=== PATIENT | male | born 1975 | race Caucasian/White ===

== ENCOUNTER 2016-12-13 19:00 | Emergency (ER) ==
[2016-12-13 19:13] VITALS: BP 160/100; TEMP 98.8; BMI 35.2
== END 2016-12-13 20:05 | disposition left against medical advice (07) ==
LOC: ED 19:00
DX: R51 Headache (principal); R50.9 Fever, unspecified; S02.5XXA Fracture of tooth (traumatic), initial encounter for closed fracture

== ENCOUNTER 2017-01-24 07:21 | Emergency (ER) ==
[2017-01-24 07:27] VITALS: BP 155/111; TEMP 96; BMI 34.9
--- NOTE | 2017-01-24 07:44 | ED.PDOC ---
General ED Provider: Dr. CYDNEY MURRAY Chief Complaint: Tooth Problem Stated Complaint: dental pain Time Seen by Physician: 07:30 Mode of Arrival: Walk-In Information Source: Patient Exam Limitations: No limitations [facility] Nursing and Triage Documentation Reviewed and Agree: Yes EENT Complaint Exam - Dental/Oral Complaint/Exam Mechanism of Injury: No known trauma Symptoms Are: Still present Timing: Intermittent Initial Severity: Moderate Current Severity: Moderate Character: Reports: Dull, Aching, Throbbing Aggravating: Reports: Heat, Cold, Chewing Alleviating: Reports: None Associated Signs and Symptoms: Denies: Swelling, Discharge, Fever, Foul odor, Foul taste in mouth Related History: Reports: Similar episode Cardiac Risk Factors: Reports: None Dental/Oral Surgical History: Reports: None Tooth Findings: Present: Gross decay, Gross caries. Absent: Abcess Cervical Lymphadenopathy Present: No Facial Swelling Present: No Bleeding Present: No Oropharynx Findings: Absent: Clots, Active bleeding Septal Hematoma: No Foreign Body Present: No Dysphagia Present: No Drooling Present: No Asymmetrical Tonsillar Swelling Present: No Uvula Midline: No Angelica-tonsillar Fluctuence: No Trismus Present: No Palatal Petechiae Present: No Scarlatinaform Rash Present: No Teeth Picture: 1 - decay Differential Diagnoses: Dental Caries Review of Systems - Review Of Systems Constitutional: Reports: No symptoms Eyes: Reports: No symptoms Ears, Nose, Mouth, Throat: Reports: No symptoms Respiratory: Reports: No symptoms Cardiac: Reports: No symptoms GI: Reports: No symptoms : Reports: No symptoms Musculoskeletal: Reports: No symptoms Skin: Reports: No symptoms Neurological: Reports: No symptoms Endocrine: Reports: No symptoms Hematologic/Lymphatic: Reports: No symptoms All Other Systems: Reviewed and Negative Past Medical History - Past Medical History Previously Healthy: Yes Endocrine: Reports: None Cardiovascular: Reports: None Respiratory: Reports: None Hematological: Reports: None Gastrointestinal: Reports: None Genitourinary: Reports: None Neuro/Psych: Reports: None Musculoskeletal: Reports: None Cancer: Reports: None - Surgical History General Surgical History: Reports: None - Family History Family History: Reports: None - Social History Smoking Status: Current every day smoker, Light tobacco smoker Hx Substance Use: Yes ( A YOUTH) Alcohol Screening: None - Immunizations Tetanus Shot up to Date: Yes Physical Exam - Physical Exam Appearance: Well-appearing, No pain distress, Well-nourished Eyes: THANIA, EOMI, Conjunctiva clear ENT: Ears normal, Nose normal, Oropharynx normal Respiratory: Airway patent, Breath sounds clear, Breath sounds equal, Respirations nonlabored Cardiovascular: RRR, Pulses normal, No rub, No murmur GI/: Soft, Nontender, No masses, Bowel sounds normal, No Organomegaly Musculoskeletal: Normal strength, ROM intact, No edema, No calf tenderness Skin: Warm, Dry, Normal color Neurological: Sensation intact, Motor intact, Reflexes intact, Cranial nerves intact, Alert, Oriented Psychiatric: Affect appropriate, Mood appropriate Critical Care Note - Critical Care Note Total Time (mins): 0 Course - Course Vital Signs: Temp Pulse Resp BP Pulse Ox 01/24/17 07:21 96 F L 97 H 20 155/111 H 97 Departure - Departure Time of Disposition: 07:43 Disposition: HOME SELF-CARE Discharge Problem: Toothache Instructions: Dental Caries (ED), Toothache (ED) Condition: Good Pt referred to PMD for follow-up: No Allergies/Adverse Reactions: Allergies ibuprofen Adverse Reaction (Verified 01/24/17 07:27) IS NOT ALLERGIG, BUT DOES NOT TAKE DUE TO DIVERTICULITIS Home Medications: Ambulatory Orders 1 [No Reported Medications] 06/11/14 Disposition Discussed With: Patient
== END 2017-01-24 07:46 | disposition home or self-care (01) ==
LOC: ED 07:21
DX: K08.89 Other specified disorders of teeth and supporting structures (principal); K02.7 Dental root caries; F17.210 Nicotine dependence, cigarettes, uncomplicated
CPT/HCPCS: 99282

== ENCOUNTER 2017-03-20 06:44 | Emergency (ER) ==
[2017-03-20 06:55] VITALS: BP 138/84; TEMP 98.1; BMI 35.7
--- NOTE | 2017-03-20 07:46 | DI ---
EXAM: CHEST FRONTAL AND LATERAL VIEWS HISTORY: Cough. COMPARISON: 11/18/2012 FINDINGS: Heart size and mediastinal contour remain within normal limits. There is subtle patchy density in the lateral right base. Lungs are otherwise clear. Normal vascularity. No pneumothorax or pleural fluid. IMPRESSION: Subtle lateral right base density could represent minimal pneumonia given patient history.
--- NOTE | 2017-03-20 07:46 | ED.PDOC ---
General ED Provider: Dr. AMMY WITT Chief Complaint: Back Pain Stated Complaint: Patient states he has been coughing and having back pain mostly in the between the shoulder blades more on the left. States he has been lifting alot of weights at work. Time Seen by Physician: 07:42 Mode of Arrival: Walk-In Information Source: Patient [facility] and Triage Documentation Reviewed and Agree: Yes Musculoskeletal Complaint Exam - Back Pain Complaint/Exam Mechanism of Injury: Reports: No known trauma Onset/Duration: 1 day Symptoms Are: Still present Timing: Constant Location: Reports: Discrete (Left upper back ) Character: Reports: Aching, Throbbing Aggravating: Reports: Movements, Lifting Alleviating: Reports: None Associated Signs and Symptoms: Denies: Swelling, Redness, Bruising, Fever, Weakness, Numbness, Tingling, Abdominal pain, Flank pain, Bladder incontinence, Bowel incontinence, Weight loss, Pain with weight bearing TAD Risk Factors: Reports: None AAA Risk Factors: Reports: Smoking Cauda Equina Risk Factors: Reports: None Epidural Abcess Risk Factors: Reports: None Related Surgical History: Reports: None Focal Tenderness: No Paraspinal Muscle Tenderness: No Paraspinal Muscle Spasm: No Scoliosis: No Lordosis: No Kyphosis: No SLR Test: Right Negative, Left Negative Hip Motion Testing Pain: Right Negative, Left Negative Focal Weakness: Present: None Focal Sensory Loss: Present: None Gait: Present: Normal Back Picture: 1 - mild tenderness to palpation. Differential Diagnoses: Strain, Sprain, Other (Pneumonia. ) Review of Systems - Review Of Systems Constitutional: Reports: No symptoms Eyes: Reports: No symptoms Ears, Nose, Mouth, Throat: Reports: No symptoms Respiratory: Reports: Cough. Denies: Short of air Cardiac: Reports: Chest pain Musculoskeletal: Reports: Back pain Neurological: Reports: Anxiety Endocrine: Reports: No symptoms Hematologic/Lymphatic: Reports: No symptoms All Other Systems: Reviewed and Negative Past Medical History - Past Medical History Previously Healthy: Yes Endocrine: Reports: None Cardiovascular: Reports: None Respiratory: Reports: Pneumonia Hematological: Reports: None Gastrointestinal: Reports: Diverticulitis Genitourinary: Reports: None Neuro/Psych: Reports: None Musculoskeletal: Reports: None Cancer: Reports: None - Surgical History General Surgical History: Reports: None - Family History Family History: Reports: None - Social History Smoking Status: Current every day smoker, Light tobacco smoker Hx Substance Use: Yes ( A YOUTH) Alcohol Screening: None - Immunizations Tetanus Shot up to Date: Yes Physical Exam - Physical Exam Appearance: Ill-appearing, Obese Ill-appearing: Mild Pain Distress: Moderate Eyes: THANIA, EOMI, Conjunctiva clear ENT: Ears normal, Nose normal, Oropharynx normal Neck: Supple Respiratory: Breath sounds diminished Cardiovascular: RRR, Pulses normal, No rub, No murmur GI/: Soft, Nontender, No masses, Bowel sounds normal, No Organomegaly Musculoskeletal: Limited ROM (left shoulder with pain on the back ) Skin: Warm, Dry, Normal color Neurological: Sensation intact, Motor intact, Reflexes intact, Cranial nerves intact, Alert, Oriented Psychiatric: Anxious Interpretation - Radiology Interpretation Radiology Interpretation By: Radiologist Radiology Results: Positive Exam Interpreted: CXR (Minimal Pneumonia ) - EKG Interpretation Time of EKG #1: 07:59 Rate: Normal Rhythm: Sinus Ectopy: None Interpretation: RBBB Critical Care Note - Critical Care Note Total Time (mins): 0 Course - Course Orders, Labs, Meds: Orders Category Date Time Status CHEST, 2 VIEWS PA & LAT Stat RADS 03/20/17 07:23 Taken Vital Signs: Temp Pulse Resp BP Pulse Ox 03/20/17 06:45 98.1 F 92 H 20 138/84 93 L Departure - Departure Time of Disposition: 08:37 Disposition: HOME SELF-CARE Discharge Problem: Pneumonia Qualifiers: Pneumonia type: due to unspecified organism Laterality: right Lung location: unspecified part of lung Qualifier Code: (J18.9) Pneumonia, unspecified organism Instructions: Community Acquired Pneumonia (ED), Musculoskeletal Pain (ED) Condition: Stable Pt referred to PMD for follow-up: Yes Additional Instructions: Take antibiotics as prescribed Follow up with PCP in 3 days. Take pain medications as prescribed. Prescriptions: Amoxicillin/Potassium Clav [Augmentin 500-125 mg Tab] 1 tab PO Q8HR #30 tablet Tramadol HCl [Ultram] 50 mg PO Q6H PRN #14 tablet PRN Reason: Severe Pain Allergies/Adverse Reactions: Allergies ibuprofen Adverse Reaction (Verified 03/20/17 07:01) IS NOT ALLERGIG, BUT DOES NOT TAKE DUE TO DIVERTICULITIS Home Medications: Ambulatory Orders Amoxicillin/Potassium Clav [Augmentin 500-125 mg Tab] 1 tab PO Q8HR #30 tablet 03/20/17 Tramadol HCl [Ultram] 50 mg PO Q6H PRN #14 tablet 03/20/17 Disposition Discussed With: Patient, Family
[2017-03-20] MEDS: DUONEB NEB STA (08:04)
[2017-03-20 08:07] LABS: BASOPHILS % (AUTO) 0.3 % (0.0-3.0); EOSINOPHILS # (AUTO) 0.1 K/ul (0.0-0.7); EOSINOPHILS % (AUTO) 1.2 % (0.0-7.0); HEMATOCRIT 38.2 % (42.0-52.0); HEMOGLOBIN 12.9 g/dl (14.0-18.0); IMMATURE GRANULOCYTE % (AUTO) 0.5 % (0.0-5.0); LYMPHOCYTES # (AUTO) 2.3 K/uL (0.60-3.4); LYMPHOCYTES % (AUTO) 22.3 (10.0-50.0); MEAN CORPUSCULAR HEMOGLOBIN 28.9 pg (27.0-31.0); MEAN CORPUSCULAR HGB CONC 33.8 (31.8-35.4); MEAN CORPUSCULAR VOLUME 85.7 fl (80.0-94.0); MONOCYTES # (AUTO) 0.9 K/uL (0.4-2.0); MONOCYTES % (AUTO) 8.8 (0-10); NEUTROPHILS # (AUTO) 6.8 K/ul (2.0-6.9); NEUTROPHILS % (AUTO) 66.9; PLATELET COUNT 285 10^3/uL (140-440); RED BLOOD COUNT 4.46 10^6/ul (4.70-6.10); WHITE BLOOD COUNT 10.13 K/ul (4.2-10.2)
[2017-03-20] MEDS: TORADOL IVP STA (08:23)
[2017-03-20] MEDS ORDERED: LEVAQUIN 500 MG in PREMIX 100 ML D5W 1 BAG IV STA (08:27)
[2017-03-20] MEDS ORDERED: TORADOL IVP STA (08:29)
[2017-03-20 08:40] LABS: ALBUMIN 3.6 g/dL (3.4-5.0); ANION GAP 12.1; BILIRUBIN,TOTAL 0.36 mg/dL (0.00-1.20); BUN/CREATININE RATIO 13.04; CREATININE 0.92 mg/dL (0.60-1.10); POTASSIUM 4.1 mmol/L (3.5-5.1); TOTAL PROTEIN 7.2 g/dL (6.4-8.2); TROPONIN I 0.018 ng/ml (0.0000-0.4000)
[2017-03-20] MEDS: TORADOL IM STA (08:46)
[2017-03-20] MEDS: ROCEPHIN IM STA (08:47)
[2017-03-20] MEDS: LIDOCAINE 1 % AMP 5 ML (SUTURES) IM STA (08:48)
[2017-03-20 08:51] LABS: D-DIMER 470.22 ng/mL (<500)
== END 2017-03-20 09:05 | disposition home or self-care (01) ==
LOC: ED 06:44
DX: J18.9 Pneumonia, unspecified organism (principal); F17.210 Nicotine dependence, cigarettes, uncomplicated
CPT/HCPCS: 36415; 80053; 83605; 84145; 84484; 85025; 85379; 87040; 93005; 93010; 94640; 96372; 99283

== ENCOUNTER 2017-04-08 14:11 | Outpatient (CLI) ==
[2017-04-08 14:37] LABS: BASOPHILS % (AUTO) 0.2 % (0.0-3.0); EOSINOPHILS # (AUTO) 0.4 K/ul (0.0-0.7); EOSINOPHILS % (AUTO) 3.7 % (0.0-7.0); HEMATOCRIT 40.4 % (42.0-52.0); HEMOGLOBIN 13.8 g/dl (14.0-18.0); IMMATURE GRANULOCYTE % (AUTO) 0.3 % (0.0-5.0); LYMPHOCYTES % (AUTO) 29.5 (10.0-50.0); MEAN CORPUSCULAR HEMOGLOBIN 29.1 pg (27.0-31.0); MEAN CORPUSCULAR HGB CONC 34.2 (31.8-35.4); MEAN CORPUSCULAR VOLUME 85.1 fl (80.0-94.0); MONOCYTES # (AUTO) 0.8 K/uL (0.4-2.0); MONOCYTES % (AUTO) 7.8 (0-10); NEUTROPHILS # (AUTO) 5.9 K/ul (2.0-6.9); NEUTROPHILS % (AUTO) 58.5; PLATELET COUNT 326 10^3/uL (140-440); RED BLOOD COUNT 4.75 10^6/ul (4.70-6.10); WHITE BLOOD COUNT 10.01 K/ul (4.2-10.2)
--- NOTE | 2017-04-08 14:41 | CT ---
EXAM: CT of the abdomen pelvis without contrast History: Upper abdominal pain, history of diverticulosis. Comparison: CT abdomen pelvis 03/02/2016 Technique: Multiplanar CT images through the abdomen pelvis were obtained without the administratio n of IV contrast Findings: Lung bases are free of consolidation. No acute osseous abnormalities. Moderate to severe degenerative changes within the lower lumbar spine. Some degree of spinal stenosis at L4-L5 but di fficult to quantify. Gallbladder is contracted. The liver may be fatty. No focal liver or splenic lesions. No peripanc reatic inflammation. Adrenal glands are unremarkable. No renal stones and no hydronephrosis. The appendix is not dilated or inflamed. No bowel obstruction. Colonic diverticulosis. No bladder wal l thickening. Prostate is not enlarged. No perirectal inflammation. Impression: 1. No acute intra-abdominal or pelvic process. 2. Colonic diverticulosis. 3. Possible fatty liver. 4. Degenerative changes within the lower lumbar spine.
[2017-04-08 14:57] LABS: ALBUMIN 3.9 g/dL (3.4-5.0); ALBUMIN/GLOBULIN RATIO 1.03; BILIRUBIN,TOTAL 0.23 mg/dL (0.00-1.20); BUN/CREATININE RATIO 13.48; CALCIUM 9.4 mg/dL (8.2-10.2); CREATININE 0.89 mg/dL (0.60-1.10); TOTAL PROTEIN 7.7 g/dL (6.4-8.2)
== END 2017-04-08 14:12 | disposition home or self-care (01) ==
LOC: RAD 14:11
PROVIDERS: ATTEND Nurse Practitioner Family
DX: R10.84 Generalized abdominal pain (principal); Z87.19 Personal history of other diseases of the digestive system
CPT/HCPCS: 36415; 80053; 82150; 83690; 85025

== ENCOUNTER 2019-01-30 08:36 | Emergency (ER) ==
[2019-01-30 08:40] VITALS: BP 156/90; TEMP 99.3; BMI 33.8
[2019-01-30] MEDS ORDERED: ROCEPHIN IM STA (08:47)
[2019-01-30] MEDS ORDERED: LIDOCAINE HCL 1% SDV IM STA (08:47)
--- NOTE | 2019-01-30 08:49 | ED.PDOC ---
General ED Provider: Dr. LIZA DE MD Chief Complaint: Tooth Problem Stated Complaint: tooth pain Time Seen by Physician: 08:45 Mode of Arrival: Walk-In Information Source: Patient Exam Limitations: No limitations Primary Care Provider: MACK VALADEZ Nursing and Triage Documentation Reviewed and Agree: Yes Does patient meet sepsis criteria?: No If yes, has appropriate treatment been initiated?: Yes System Inflammatory Response Syndrome: Not Applicable Sepsis Protocol: For patient's 13 years and over: Temp is 96.8 and below OR 101 and greater Pulse >90 BPM Resp >20/minute Acutely Altered Mental Status Are patient's symptoms suggestive of a new infection, such as: -Pneumonia -Skin, Soft Tissue -Endocarditis -UTI -Bone, Joint Infection -Implantable Device -Acute Abdominal Infection -Wound Infection -Meningitis -Blood Stream Catheter Infection -Unknown Review of Systems - Review Of Systems Constitutional: Reports: No symptoms Eyes: Reports: No symptoms Ears, Nose, Mouth, Throat: Reports: Mouth pain, Mouth swelling Respiratory: Reports: No symptoms Cardiac: Reports: No symptoms GI: Reports: No symptoms : Reports: No symptoms Musculoskeletal: Reports: No symptoms Skin: Reports: No symptoms Neurological: Reports: No symptoms Endocrine: Reports: No symptoms Hematologic/Lymphatic: Reports: No symptoms All Other Systems: Reviewed and Negative Past Medical History - Past Medical History Previously Healthy: Yes Endocrine: Reports: None Cardiovascular: Reports: None Respiratory: Reports: Pneumonia Hematological: Reports: None Gastrointestinal: Reports: Diverticulitis Genitourinary: Reports: None Neuro/Psych: Reports: None Musculoskeletal: Reports: None Cancer: Reports: None - Surgical History General Surgical History: Reports: None - Family History Family History: Reports: None - Social History Smoking Status: Current every day smoker, Light tobacco smoker Hx Substance Use: Yes ( A YOUTH) Alcohol Screening: None Physical Exam - Physical Exam Appearance: Obese Pain Distress: Moderate Eyes: THANIA, EOMI, Conjunctiva clear ENT: Ears normal, Nose normal, Oropharynx normal, Erythema (left upper molar) Respiratory: Airway patent, Breath sounds clear, Breath sounds equal, Respirations nonlabored Cardiovascular: RRR, Pulses normal, No rub, No murmur GI/: Soft, Nontender, No masses, Bowel sounds normal, No Organomegaly Musculoskeletal: Normal strength, ROM intact, No edema, No calf tenderness Skin: Warm, Dry, Normal color Neurological: Sensation intact, Motor intact, Reflexes intact, Cranial nerves intact, Alert, Oriented Psychiatric: Affect appropriate, Mood appropriate Critical Care Note - Critical Care Note Total Time (mins): 0 Course - Course Vital Signs: Temp Pulse Resp BP Pulse Ox 01/30/19 08:37 99.3 F 97 H 20 156/90 H 98 Departure - Departure Time of Disposition: 09:15 Disposition: HOME SELF-CARE Discharge Problem: Abscessed tooth Instructions: Dental Abscess (ED) Condition: Good Pt referred to PMD for follow-up: Yes (dentist) IPMP verified?: No Prescriptions: Amoxicillin 500 mg PO TID 10 Days #30 tablet NS Allergies/Adverse Reactions: Allergies ibuprofen Adverse Reaction (Unknown, Verified 01/30/19 08:40) IS NOT ALLERGIC, BUT DOES NOT TAKE DUE TO DIVERTICULITIS Home Medications: Ambulatory Orders Amoxicillin 500 mg PO TID 10 Days #30 tablet NS 01/30/19 Transfer Form Completed: No Disposition Discussed With: Patient, Family
== END 2019-01-30 09:26 | disposition home or self-care (01) ==
LOC: ED 08:36
DX: K08.89 Other specified disorders of teeth and supporting structures (principal); K13.79 Other lesions of oral mucosa; Z72.0 Tobacco use; K04.7 Periapical abscess without sinus
CPT/HCPCS: 96372; 99282

== ENCOUNTER 2019-02-02 05:05 | Emergency (ER) ==
[2019-02-02 05:17] VITALS: BP 159/97; TEMP 97.4; BMI 34.7
--- NOTE | 2019-02-02 05:50 | ED.PDOC ---
General ED Provider: Dr. LIZA WORTHINGTON-ER Chief Complaint: Shoulder Pain/Injury Stated Complaint: i hurt my shoulder at work Time Seen by Physician: 05:10 Mode of Arrival: Walk-In Information Source: Patient Exam Limitations: No limitations Primary Care Provider: MACK VALADEZ Nursing and Triage Documentation Reviewed and Agree: Yes Does patient meet sepsis criteria?: No System Inflammatory Response Syndrome: Not Applicable Sepsis Protocol: For patient's 13 years and over: Temp is 96.8 and below OR 101 and greater Pulse >90 BPM Resp >20/minute Acutely Altered Mental Status Are patient's symptoms suggestive of a new infection, such as: -Pneumonia -Skin, Soft Tissue -Endocarditis -UTI -Bone, Joint Infection -Implantable Device -Acute Abdominal Infection -Wound Infection -Meningitis -Blood Stream Catheter Infection -Unknown Musculoskeletal Complaint Exam - Shoulder Pain Complaint/Exam Mechanism of Injury: Reports: Trauma Onset/Duration: one day Symptoms Are: Still present Timing: Constant Initial Severity: Mild Current Severity: Moderate Location: Reports: Discrete Character: Reports: Dull, Aching, Spasmodic Alleviating: Reports: Rest Aggravating: Reports: Movement, Lifting, Flexion, Extension, Internal rotation, External rotation, Abduction Associated Signs and Symptoms: Denies: Swelling, Redness, Bruising, Fever, Weakness, Numbness, Tingling Related History: Reports: Occupational injury Non-Orthopedic Risk Factors: Reports: None DVT Risk Factors: Reports: None Septic Arthritis Risk Factors: Reports: None Related Surgical History: Reports: None Shoulder Findings: Absent: Swelling, Ecchymosis, Abnormal contour, Rotation, Ligamentous instability, Laceration, Erythema, Warmth, Blisters, Other joint pain, Foreign body, Adson's Sign Tenderness: Present: Rotator cuff muscles Limited Range of Motion: Present: Abduction, Adduction, Flexion, Extension, Internal rotation, Rotator cuff insertion Differential Diagnoses: Arthritis, Rotator Cuff Injury, Sprain, Strain, Tendonitis Review of Systems - Review Of Systems Constitutional: Reports: No symptoms Eyes: Reports: No symptoms Ears, Nose, Mouth, Throat: Reports: No symptoms Respiratory: Reports: No symptoms Cardiac: Reports: No symptoms GI: Reports: No symptoms : Reports: No symptoms Musculoskeletal: Reports: Joint pain, Muscle pain Skin: Reports: No symptoms Neurological: Reports: No symptoms Endocrine: Reports: No symptoms Hematologic/Lymphatic: Reports: No symptoms All Other Systems: Reviewed and Negative Past Medical History - Past Medical History Previously Healthy: Yes Endocrine: Reports: None Cardiovascular: Reports: None Respiratory: Reports: Pneumonia Hematological: Reports: None Gastrointestinal: Reports: Diverticulitis Genitourinary: Reports: None Neuro/Psych: Reports: None Musculoskeletal: Reports: None Cancer: Reports: None - Surgical History General Surgical History: Reports: None - Family History Family History: Reports: None - Social History Smoking Status: Current every day smoker, Light tobacco smoker Hx Substance Use: Yes ( A YOUTH AND MARIHELGAA OCCASIONALLY CURRENTLY) Alcohol Screening: None Physical Exam - Physical Exam Appearance: Well-appearing Pain Distress: Mild Eyes: THANIA, EOMI, Conjunctiva clear ENT: Ears normal, Nose normal, Oropharynx normal Neck: Supple Respiratory: Airway patent, Breath sounds clear, Breath sounds equal, Respirations nonlabored Cardiovascular: RRR GI/: Soft, Nontender, No masses, Bowel sounds normal, No Organomegaly Musculoskeletal: Limited ROM Skin: Warm, Dry, Normal color Neurological: Sensation intact Psychiatric: Affect appropriate, Mood appropriate Interpretation - Radiology Interpretation Radiology Interpretation By: ED Physician Radiology Results: Negative Re-Evaluation - Re-Evaluation Time of Re-Evaluation: 05:53 Status: Unchanged Vital Signs Stable: Yes Pain Level: 2 Appearance: NAD Lungs: Clear Skin: Warm and Dry Neuro: Alert and Oriented X3 CV: RRR Additional Comments: exam does confirm limited abduction of the right arm at the shoulder with p Critical Care Note - Critical Care Note Total Time (mins): 0 Course - Course Orders, Labs, Meds: Orders Category Date Time Status SHOULDER, RIGHT MIN 2V Stat RADS 02/02/19 05:28 Taken Vital Signs: Temp Pulse Resp BP Pulse Ox 02/02/19 05:06 97.4 F L 82 20 159/97 H 97 Departure - Departure Time of Disposition: 05:50 Disposition: HOME SELF-CARE Discharge Problem: Injury of shoulder region Instructions: Rotator Cuff Injury (ED) Condition: Good Pt referred to PMD for follow-up: Yes IPMP verified?: No Additional Instructions: norco 7.5mg q 4hrs prn #12---norflex 100mg q 12hrs #30----medrol dose pack--- heat alt ice---recheck in 72hrs if not improved---consider mri of the shoulder Allergies/Adverse Reactions: Allergies ibuprofen Adverse Reaction (Unknown, Verified 01/30/19 08:40) IS NOT ALLERGIC, BUT DOES NOT TAKE DUE TO DIVERTICULITIS Home Medications: Ambulatory Orders Amoxicillin 500 mg PO TID 10 Days #30 tablet NS 01/30/19 Disposition Discussed With: Patient
--- NOTE | 2019-02-02 07:02 | DI ---
EXAM: Right shoulder, three views, 02/02/2019 HISTORY: Shoulder pain. Injury COMPARISON: None. FINDINGS / IMPRESSION: The visualized osseous structures appear intact. Anatomic alignment appears within normal limits. There is no evidence of fracture or dislocation. 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 No acute osseous abnormality.
== END 2019-02-02 05:58 | disposition home or self-care (01) ==
LOC: ED 05:05
DX: S49.91XA Unspecified injury of right shoulder and upper arm, initial encounter (principal); F17.210 Nicotine dependence, cigarettes, uncomplicated
CPT/HCPCS: 99283